=== PATIENT | female | born 1965 | race Caucasian/White ===

== ENCOUNTER → 2020-12-27 | Outpatient (CLI) | payer OTHER | LOC: CAT 10:04 | PROVIDERS: ATTEND Nurse Practitioner | DX: R59.1 Generalized enlarged lymph nodes (principal) ==

== ENCOUNTER → 2021-01-14 | Outpatient (CLI) | payer OTHER | END | disposition home or self-care (01) | LOC: MRI 09:48 | PROVIDERS: ATTEND Nurse Practitioner | DX: R16.0 Hepatomegaly, not elsewhere classified (principal) ==